=== PATIENT | male | born 2000 | race Caucasian/White ===

== ENCOUNTER 2020-02-26 15:00 | Emergency (ER) | payer BC ==
[~2020-02-26] VITALS: Ht 177.8 cm; Wt 108.8 kg
[2020-02-26 15:20] VITALS: BP 142/89
[2020-02-26] MEDS ORDERED: TETANUS,DIPTH,PERTUSS P/F (BOOSTRIX) 0.5 ML VIAL IM ONE ×2 (15:30→15:45)
[2020-02-26] MEDS ORDERED: NS IV 1000 ML 1,000 ML IV SCH (15:30)
--- NOTE | 2020-02-26 15:30 | ED Upper Extremity ---
General Chief Complaint: Laceration Stated Complaint: LACERATION TO R THUMB Nursing Triage Note: Pt to ED for laceration to R thumb. Pt reports cuttung thumb when sharpening a knife. Nursing Sepsis Screen: No Definite Risk Source: patient Exam Limitations: no limitations History of Present Illness Date Seen by Provider: Feb 26, 2020 Time Seen by Provider: 15:28 Initial Comments superficial lac to right thumb tip Onset: just prior to arrival Severity: moderate Pain/Injury Location: right thumb Method of Injury: other (pocket knife) Allergies and Home Medications Allergies Coded Allergies: No Known Drug Allergies (Unverified , 02/26/20) Patient Home Medication List Home Medication List Reviewed: Yes Review of Systems Constitutional: see HPI EENTM: see HPI Respiratory: no symptoms reported Cardiovascular: no symptoms reported Genitourinary: no symptoms reported Musculoskeletal: no symptoms reported Skin: no symptoms reported Psychiatric/Neurological: No Symptoms Reported Past Hjchloz-Rtzbby-Cclxlu Hx Patient Social History Alcohol Use: Denies Use Recreational Drug Use: No Smoking Status: Never a Smoker 2nd Hand Smoke Exposure: No Recent Foreign Travel: No Contact w/Someone Who Travel: No Recent Infectious Disease Expo: No Past Medical History Surgeries: No Respiratory: No Cardiac: No Neurological: No Genitourinary: No Gastrointestinal: No Musculoskeletal: No Endocrine: Yes Hypothyroidsim HEENT: No Cancer: No Psychosocial: No Integumentary: No Blood Disorders: No Physical Exam Vital Signs Vital Signs - First Documented 02/26/20 15:20 Temp 36.9 Pulse 83 Resp 20 B/P (MAP) 142/89 (106) Pulse Ox 98 O2 Delivery Room Air Capillary Refill : Less Than 3 Seconds Height, Weight, BMI Height: '" Weight: 76lbs. oz. 34.232888wg; 34.00 BMI Method:Stated General Appearance: WD/WN, no apparent distress Respiratory: no respiratory distress, no accessory muscle use Shoulder: normal inspection, non-tender Elbow/Forearm: normal inspection, non-tender Wrist: Yes normal inspection, Yes non-tender Hand: Right, laceration (1cm superficial but bleeding lac of thumb tip) Neurologic/Psychiatric: alert, normal mood/affect, oriented x 3 Skin: normal color, warm/dry Progress/Results/Core Measures Results/Orders My Orders Orders - MARLEN VALENZUELA APRN Ns Iv 1000 Ml (Sodium Chloride 0.9%) (02/26/20 15:30) Dipht,Pertuss(Acell),Tet Adult (Boostrix (02/26/20 15:45) Dipht,Pertuss(Acell),Tet Adult (Boostrix (02/26/20 15:30) Medications Given in ED Current Medications Medications Dose Ordered Sig/Corinna Route Start Time Stop Time Status Last Admin Dose Admin Diphtheria/ Tetanus/Acell Pertussis 0.5 ml ONCE ONCE IM 02/26/20 15:45 02/26/20 15:46 DC 02/26/20 15:36 0.5 ML Vital Signs/I&O 02/26/20 15:20 Temp 36.9 Pulse 83 Resp 20 B/P (MAP) 142/89 (106) Pulse Ox 98 O2 Delivery Room Air Departure Impression Primary Impression: Laceration of thumb Qualified Codes: S61.011A - Laceration without foreign body of right thumb without damage to nail, initial encounter Disposition: HOME, SELF-CARE Condition: Stable Departure-Patient Inst. Decision time for Depature: 15:29 Referrals: ANTONETTE MARTINEZ MD (PCP/Family) Primary Care Physician Patient Instructions: Laceration Repair With Glue (DC) Add. Discharge Instructions: 1. Return to ER for any concerns. Medication as directed. Follow-up with your doctor next week. The glue will fall off on its own in 3 to 5 days. Do not apply any ointments creams or lotions to this. All discharge instructions reviewed with patient and/or family. Voiced under standing. MARLEN VALENZUELA APRN Feb 26, 2020 15:30
== END 2020-02-26 15:53 | disposition home or self-care (01) ==
LOC: EDUNIT# 15:00 → ER 15:03
DX: S61.011A Laceration without foreign body of right thumb without damage to nail, initial encounter (principal); Z23 Encounter for immunization; W26.0XXA Contact with knife, initial encounter
CPT/HCPCS: 90715